=== PATIENT | female | born 1975 | race Caucasian/White ===

== ENCOUNTER 2018-03-27 16:50 | Emergency (ER) | payer BC ==
[~2018-03-27] VITALS: Ht 165.1 cm; Wt 87.2 kg
[2018-03-27] MEDS ORDERED: TOPAMAX200 M1 PO (17:19)
[2018-03-27] MEDS ORDERED: XANAX2 MG PO (17:19)
[2018-03-27 17:39] LABS: HEMATOCRIT 40.7 % (37.0-47.0); HEMOGLOBIN 13.4 g/dl (12.0-16.0); IMMATURE GRANULOCYTES 0.3 % (0.0-5.0); MEAN CORPUSCULAR HGB 32.9 pG CALC (26.0-32.0); MEAN CORPUSCULAR HGB CONC 32.9 g/L CALC (32.0-36.0); NEUT# 3.26 thou/uL (2.00-7.15); RED BLOOD COUNT 4.07 mill/uL (4.20-5.60); RED CELL DISTRI WIDTH 12.5 % (11.5-15.5)
[2018-03-27 17:51] LABS: ALBUMIN 4.2 g/dL (3.2-5.0); ALKALINE PHOSPHATASE 74 u/l (38-126); ANION GAP 16 (6-22 (CALC)); BILIRUBIN, TOTAL 1.2 mg/dL (0.0-1.4); BUN 21 mg/dL (7-17); BUN/CREATININE RATIO 34 (12-20 (CALC)); CARBON DIOXIDE 18 mmol/l (22-30); CHLORIDE 109 mmol/l (95-108); CREATININE 0.6 mg/dL (0.5-1.0); GFR > 60 ML/MIN (>=60 (CALC)); GFR FOR AFR.AMER. > 60 ML/MIN (>=60 (CALC)); SGOT/AST 35 u/l (14-36); SGPT/ALT 17 u/l (9-52); SODIUM 138 mmol/l (137-146); TOTAL PROTEIN 7.5 g/dL (6.3-8.2)
[2018-03-27 18:06] LABS: POTASSIUM 5.3 mmol/l (3.5-5.1)
[2018-03-27 18:18] LABS: URINE BILIRUBIN - DIPSTICK NEGATIVE (NEGATIVE); URINE BLOOD DIPSTICK TRACE-INTACT (NEGATIVE); URINE COLOR YELLOW; URINE GLUCOSE - DIPSTICK NEGATIVE (NEGATIVE); URINE KETONE NEGATIVE (NEGATIVE); URINE LEUK ESTERASE TRACE (NEGATIVE); URINE NITRITE - DIPSTICK NEGATIVE (Negative); URINE PROTEIN - DIPSTICK NEGATIVE (NEG-TRACE); URINE UROBILINOGEN - DIPSTICK 0.2 E.U./dL (0.2)
[2018-03-27 18:26] LABS: URINE CLARITY SL CLOUDY
[2018-03-27] MEDS ORDERED: INDOCIN25 MG PO (18:31)
[2018-03-27 18:35] VITALS: BP 113/64
== END 2018-03-27 18:40 | disposition home or self-care (01) | DRG 556 ==
LOC: ED 16:50
PROVIDERS: Emergency Medicine
DX: M79.641 Pain in right hand (principal); Z87.440 Personal history of urinary (tract) infections

== ENCOUNTER 2019-03-25 12:42 | Emergency (ER) | payer OTHER, BC ==
[~2019-03-25] VITALS: Ht 165.1 cm; Wt 84.1 kg
[~2019-03-25 12:42] MED LIST: INDOCIN25 MG PO; TOPAMAX200 M1 PO; XANAX2 MG PO
[2019-03-25] MEDS ORDERED: TRAMADOL HYDROC50 MG PO (15:54)
[2019-03-25] MEDS ORDERED: FLEXERIL5 MG PO (15:54)
[2019-03-25 16:15] VITALS: BP 119/69
== END 2019-03-25 16:15 | disposition home or self-care (01) | DRG 552 ==
LOC: ED 12:42
DX: S16.1XXA Strain of muscle, fascia and tendon at neck level, initial encounter (principal); S09.90XA Unspecified injury of head, initial encounter; M25.512 Pain in left shoulder; V43.53XA Car driver injured in collision with pick-up truck in traffic accident, initial encounter